=== PATIENT | female | born 1935 | race Caucasian/White ===

== ENCOUNTER 2019-01-13 12:05 | Emergency (ER) | payer OTHER ==
[~2019-01-13] VITALS: Ht 157.5 cm; Wt 108.9 kg
[~2019-01-13 12:05] MED LIST: ACID CONTROL20 MG PO; BENAZEPRIL-HCT1 EACH PO; PREDNISOLONE 5 M5 M1 PO; VITAMIN A8000 UNI1 PO; VITAMINC500 PO; ZANTAC 150MG T150 MG PO
[2019-01-13] MEDS ORDERED: [UNRECOGNIZED DRUG - OTHER] RT. EAR (14:32)
[2019-01-13] MEDS ORDERED: LORATIDINE 10 M10 M1 PO (14:32)
[2019-01-13 14:43] VITALS: BP 145/48
== END 2019-01-13 14:45 | disposition home or self-care (01) ==
LOC: ER 12:05
DX: H57.89 Other specified disorders of eye and adnexa (principal); H57.11 Ocular pain, right eye; I10 Essential (primary) hypertension; K21.9 Gastro-esophageal reflux disease without esophagitis; Z79.899 Other long term (current) drug therapy; Z90.49 Acquired absence of other specified parts of digestive tract